=== PATIENT | male | born 1960 | race African-American/Black ===

== ENCOUNTER 2016-11-06 10:19 | Outpatient (CLI) | payer MEDICARE ==
[2016-11-06 11:25] LABS: Prothrombin Time 24.6 SEC (12.0-14.7)
== END 2016-11-06 10:20 | disposition home or self-care (01) ==
LOC: HPCALD 10:19
PROVIDERS: ATTEND Family Medicine
DX: I48.91 Unspecified atrial fibrillation (principal)
CPT/HCPCS: 36415; 85610

== ENCOUNTER 2016-12-03 13:30 | Emergency (ER) | payer MEDICARE ==
[2016-12-03] MEDS ORDERED: Indomethacin 25 mg Capsule ONE (13:45)
[2016-12-03] MEDS ORDERED: predniSONE 20 MG TAB ONE (13:45)
--- NOTE | 2016-12-03 14:06 | PICIS ---
[facility] EMERGENCY RECORD TRIAGE (SunDec 03, 2016 13:34 KMOR) TRIAGE NOTES: left wrist pain x1 day, possible gout flair. (SunDec 03, 2016 13:34 KMOR) PATIENT: NAME: Donell Zhang, AGE: 56, GENDER: male, : [facility] 1960, TIME OF GREET: SunDec 03, 2016 13:31, PREFERRED LANGUAGE: Indonesian, ETHNICITY: Not or , ECODE BILLING MAP: [facility], SSN: [id number], Zip Code: [address], KG WEIGHT: 192.78, PHONE: , , , PERSON ID: [id number], PAYMENT: [employer], PCP: DO CANSECO KRISTEL. (SunDec 03, 2016 13:34 KMOR) COMPLAINT: Left Wrist Pain. (SunDec 03, 2016 13:34 KMOR) ADMISSION: URGENCY: 4 Non Urgent, ADMISSION SOURCE: Home, TRANSPORT: CAR, BED: ER -02. (SunDec 03, 2016 13:34 KMOR) ASSESSMENT: Assessment: A&OX4. RR EVEN AND UNLABORED., Symptoms began yesterday. (13:36 KMOR) IMMUNIZATIONS: Flu vaccine not up to date, Tetanus immunization up to date, Pneumococcal vaccine not up to date. (13:36 KMOR) SIRS SCORING: Heart Rate 55-109 (0), Temp range 96.8-101.1 (0), respiratory rate 12-24 (0), Mental Status altered: no (0), Infection or Suspected Infection: No. (13:36 KMOR) TRIAGE SCREENING: Patient denies suicidal ideation, Patient denies presence of domestic violence. (13:36 KMOR) PROVIDERS: TRIAGE NURSE: Amy Hernandez RN. (SunDec 03, 2016 13:34 KMOR) VITAL SIGNS: Resp 18, Pain 8, Time 12/03/2016 13:33. (13:33 KMOR) BP 150/94, Pulse 78, Temp 98.3, (Oral), O2 Sat 97, on Room Air, Time 12/03/2016 13:35. (13:35 KMOR) PREVIOUS VISIT ALLERGIES: Penicillins. (Sun Dec 03, 2016 13:34 KMOR) Penicillins. (13:36 KMOR) KNOWN ALLERGIES Penicillins: Reaction: Rash, Severity: Moderate, Source: Patient CURRENT MEDICATIONS (13:34 KMOR) warfarin: TABLET : Strength - 7.5 mg : ORAL Patient Dose: 2 tab(s) Oral once a day.only 1 tab on mondays. allopurinol: TABLET : Strength - 300 mg : ORAL Patient Dose: 1 tab(s) Oral once a day (in the morning). digoxin: TABLET : Strength - 250 mcg : ORAL Patient Dose: 0.25 mg Oral once a day. lisinopril: TABLET : Strength - 40 mg : ORAL Patient Dose: 1 tab(s) Oral once a day. warfarin: &a-1R&a+25V*p+0X*q3409P*c202B*c15G*c2P*p-0X&a-25V&a+1R Name: Donell Zhang : 1960 M56 MedRec: [id number] AcctNum: [id number] Prepared: Tonia Dec 03, 2016 14:04 by Interface Page 1 of 6 pMD [facility] EMERGENCY RECORD TABLET : Strength - 5 mg : ORAL Patient Dose: 2.5 tab(s) Oral once a day.at 5 PM. metFORMIN: TABLET : Strength - 1,000 mg : ORAL Patient Dose: 1 tab(s) Oral 2 times a day (before meals). glipiZIDE: TABLET : Strength - 5 mg : ORAL Patient Dose: 1 tab(s) Oral once a day (in the morning). omeprazole: CAPSULE,DELAYED RELEASE (ENTERIC COATED) : Strength - 20 mg : ORAL Patient Dose: 1 cap(s) Oral once a day. VITAL SIGNS VITAL SIGNS: Resp: 18, Pain: 8, Time: 12/03/2016 13:33. (13:33 KMOR) BP: 150/94, Pulse: 78, Temp: 98.3 (Oral), O2 sat: 97 on Room Air, Time: 12/03/2016 13:35. (13:35 KMOR) NURSING ASSESSMENT: EXTREMITY UPPER (13:37 KMOR) CONSTITUTIONAL: Patient arrives ambulatory, Gait steady, History obtained from patient, Patient appears comfortable, Patient cooperative, Patient alert, Oriented to person, place and time, Skin warm, Skin dry, Skin normal in color, Mucous membranes pink, Mucous membranes moist, Patient is well-groomed, Patient complains of left wrist pain, left wrist pain started 1 day ago, no injury. Reports history of gout and this feels the same. PAIN: aching pain, to the left wrist, on a scale 0-10 patient rates pain as 8. LEFT UPPER EXTREMITY: Left upper extremity assessment findings include capillary refill less than 2 seconds, Skin color normal to hand, Skin temperature to hand warm, Distal sensation intact, Muscle tone normal, muscle strength 5, no edema present, radial pulse is +3, Inspection findings include no contusion, Inspection findings include no deformity, Inspection findings include no redness, Inspection findings include swelling, to medial wrist. RIGHT UPPER EXTREMITY: Right upper extremity assessment findings include capillary refill less than 2 seconds, Skin color normal to hand, Skin temperature to hand warm, Distal sensation intact, Muscle tone normal, muscle strength 5, no edema present, radial pulse is +3. NOTES: Patient tolerated procedure well. NURSING PROCEDURE: DISCHARGE NOTE (13:54 KMOR) DISCHARGE: Patient discharged to home, ambulating without assistance, driving self, unaccompanied, Summary of Care printed/ provided, Transition record given to patient, Discharge instructions given to patient, Simple or moderate discharge teaching performed, by CHELLE Reyes, Discharge instructions and follow up reviewed with patient. Pt ambulatory to discharge desk., Prescriptions given and instructions on side effects given, Name of prescription(s) given: indomethcin, prednisone, Above person(s) verbalized &a-1R&a+25V*p+0X*j6390A*c202B*c15G*c2P*p-0X&a-25V&a+1R Name: Donell Zhang : 1960 M56 MedRec: [id number] AcctNum: [id number] Prepared: Tonia Dec 03, 2016 14:04 by Interface Page 2 of 6 pMD [facility] EMERGENCY RECORD understanding of discharge instructions and follow-up care. BELONGINGS: Belongings remain with patient, Valuables remain with patient. MEDICATION ADMINISTRATION SUMMARY Drug Name: predniSONE oral, Dose Ordered: 60 mg, Route: Oral, Status: Given, Time: 13:47 12/03/2016, Drug Name: indomethacin oral, Dose Ordered: 25 mg, Route: Oral, Status: Given, Time: 13:47 12/03/2016, Detailed record available in Medication Service section. MEDICATION SERVICE (13:47 [facility]) indomethacin oral: Order: indomethacin oral (indomethacin) - Dose: 25 mg : Oral POTENTIAL SEVERE INTERACTION: warfarin - Benefits outweigh risks, Reviewed with patient Ordered by: Waldemar Barajas MD Entered by: Waldemar Barajas MD [place] Dec 03, 2016 13:44 , Acknowledged by: Amy Hernandez RN [place] Dec 03, 2016 13:45 Documented as given by: Amy Hernandez RN [place] Dec 03, 2016 13:47 Patient, Medication, Dose, Route and Time verified prior to administration. Amount given: 25mg, Site: Medication administered P.O., Correct patient, time, route, dose and medication confirmed prior to administration, Patient advised of actions and side-effects prior to administration, Allergies confirmed and medications reviewed prior to administration, Patient in position of comfort, Side rails up, Cart in lowest position. predniSONE oral: Order: predniSONE oral (prednisone) - Dose: 60 mg : Oral Ordered by: Waldemar Barajas MD Entered by: Waldemar Barajas MD [place] Dec 03, 2016 13:41 , Acknowledged by: Amy Hernandez RN [place] Dec 03, 2016 13:41 Documented as given by: Amy Hernandez RN [place]erry Dec 03, 2016 13:47 Patient, Medication, Dose, Route and Time verified prior to administration. Amount given: 60mg, Site: Medication administered P.O., Correct patient, time, route, dose and medication confirmed prior to administration, Patient advised of actions and side-effects prior to administration, Allergies confirmed and medications reviewed prior to administration, Patient in position of comfort, Side rails up, Cart in lowest position. HPI HAND (13:52 [facility]) CHIEF COMPLAINT: Patient presents for evaluation of pain, Patient presents for evaluation of swelling, Patient presents for evaluation of left wrist. HISTORIAN: History provided by patient, 56M presents to the ED reporting left wrist pain. States that the pain started &a-1R&a+25V*p+0X*w5717O*c202B*c15G*c2P*p-0X&a-25V&a+1R Name: Vicente Donell Celina : 1960 M56 MedRec: [id number] AcctNum: [id number] Prepared: Tonia Dec 03, 2016 14:04 by Interface Page 3 of 6 pMD [facility] EMERGENCY RECORD yesterday and has been constant since then. Describes the pain as exactly the same as his gouty ankle/foot pain that he has had in the past. Denies trauma, fall, or repetitive motion. Denies other injury or complaint. Denies distal numbness or tingling. MECHANISM OF INJURY: Unknown mechanism. LOCATION: Symptoms are generalized, Right hand dominant, left wrist. QUALITY: Pain is dull in nature, described as aching. TIME COURSE: Gradual onset of symptoms, There has been no change in the patient's symptoms over time, are constant. ASSOCIATED WITH: No associated symptoms. EXACERBATED BY: Patient's condition exacerbated by nothing. RELIEVED BY: Patient's condition relieved by nothing because patient has not tried anything for relief. ROS (13:54 [facility]) CONSTITUTIONAL: Negative constitutional review of systems, Historian denies chills, denies fever. ENT: Negative ears, nose, throat review of systems, Historian denies rhinorrhea, denies sore throat. CARDIOVASCULAR: Negative cardiovascular review of systems, Historian denies chest pain, denies palpitations. RESPIRATORY: Negative respiratory review of systems, Historian denies cough, denies shortness of breath. GI: Negative gastrointestinal review of systems, Historian denies abdominal pain, denies constipation, denies diarrhea, denies nausea, denies vomiting. MUSCULOSKELETAL: Historian reports joint swelling, left wrist pain, no trauma, no injury. SKIN: Negative skin review of systems, Historian denies rash, denies skin changes. NEUROLOGIC: Negative neurologic review of systems, Historian denies headache. PAST MEDICAL HISTORY (13:36 [facility]) MEDICAL HISTORY: Flu vaccine not up to date, Tetanus immunization up to date, Pneumococcal vaccine not up to date, , Past medical history includes cardiac history, arrhythmia, atrial fibrillation, Past medical history includes musculoskeletal disorder, gout, Past medical history includes skin history, shingles, Past medical history includes history of hypertension; Past medical history includes cardiac history, congestive heart failure Cellulitis. MALE SURGICAL HISTORY: Patient has no surgical history. PSYCHIATRIC HISTORY: No previous psychiatric history. SOCIAL HISTORY: Patient denies alcohol use, Patient denies drug use, Patient has no smoking history. FAMILY HISTORY: Family istory is not significant. &a-1R&a+25V*p+0X*j3661Z*c202B*c15G*c2P*p-0X&a-25V&a+1R Name: Donell Zhang : 1960 M56 MedRec: [id number] AcctNum: [id number] Prepared: Tonia Dec 03, 2016 14:04 by Interface Page 4 of 6 pMD [facility] EMERGENCY RECORD PHYSICAL EXAM (13:54 [facility]) CONSTITUTIONAL: Vital signs reviewed, Patient afebrile, Pulse normal, Blood pressure normal, Respiratory rate normal, Patient appears non toxic, Patient appears pain free, Patient alert and oriented to person, place and time. NECK: Neck exam normal, Neck exam included findings of normal range of motion, Trachea midline, no meningeal signs, no cervical adenopathy, no tenderness. RESPIRATORY CHEST: Respiratory and chest exam normal, Respiratory exam included findings of no respiratory distress, Breath sounds clear. CARDIOVASCULAR: Cardiovascular assessment normal, Cardiovascular exam included findings of heart rate regular rate and rhythm, Heart sounds normal. ABDOMEN MALE: Abdominal exam included findings of abdomen nontender, Bowel sounds normal, no distension, no mass, no pulsatile masses, no peritoneal signs, no rigidity, no guarding, no rebound, Rovsing's sign absent. BACK: Back exam normal, Back exam included findings of normal inspection, range of motion normal, no tenderness. UPPER EXTREMITY: mild left wrist swelling and tenderness to palpation. no obvious erythema, but dark skin. No evidence of injury, no excess bony point tenderness. NEURO: Neuro exam normal, Neuro exam findings include patient oriented to person, place and time, Speech normal, Gait normal. SKIN: Skin exam normal, Skin exam included findings of skin warm, dry, and normal in color, no rash. EVENTS TRANSFER: Triage to Emergency Emergency Room -02. (Tonia Dec 03, 2016 13:34 KMOR) Removed from Emergency Emergency Room -02. (13:55 [facility]) DOCTOR NOTES (13:55 [facility]) TEXT: Patient presented with findings consistent with acute gouty arthritis. Has been well managed on allopurinol recently but symptoms are consistent with acute flare. Will start medications for management and have the patient follow up with his primary care provider next week. PATIENT STATUS: Patient has improved since arrival to emergency department. PATIENT PLAN: The patient will be discharged, The patient will follow up with primary care physician. PROBLEM LIST No recorded problems DIAGNOSIS (13:46 [facility]) FINAL: PRIMARY: GOUT UNSPECIFIED. &a-1R&a+25V*p+0X*j6584U*c202B*c15G*c2P*p-0X&a-25V&a+1R Name: Donell Zhang : 1960 M56 MedRec: [id number] AcctNum: [id number] Prepared: Tonia Dec 03, 2016 14:04 by Interface Page 5 of 6 pMD [facility] EMERGENCY RECORD DISPOSITION PATIENT: Disposition Type: Discharge, Disposition: *Discharge Home. (13:46 [facility]) Patient left the department. (13:55 [facility]) INSTRUCTION (13:48 [facility]) DISCHARGE: GOUTY ARTHRITIS. FOLLOWUP: DO CANSECO KRISTEL, [facility], [address] [place] [id number], [phone]. SPECIAL: Take prednisone daily. If you still have pain, add an NSAID, which can be one of 1. Indomethacin 25-50mg three times a day 2. Naproxen 500mg three times a day 3. Ibuprofen 600mg four times a day. Don't take the NSAIDS for more than 3 or 4 days. Follow up with Dr. Canseco early next week. PRESCRIPTION predniSONE oral: TABLET : 20 mg : ORAL : Quantity: 3 Unit: tab(s) Route: ORAL Schedule: once a day (after a meal) Dispense: 12 May substitute. Refills: No Refills . (13:45 [facility]) NOTES: start 2/6 No refills. (13:45 [facility]) indomethacin oral: CAPSULE : 25 mg : ORAL : Quantity: 25 Unit: mg Route: ORAL Schedule: every 8 hours PRN Dispense: 12 May substitute. Refills: No Refills POTENTIAL SEVERE INTERACTION: warfarin Override Rationale: Benefits outweigh risks, Reviewed with patient. (13:46 [facility]) NOTES: No refills. (13:46 [facility]) IMAGING (13:55 [facility]) *DISCHARGE INSTRUCTIONS RECEIPT: Image captured from scanner. *SUPPLY CHARGE SHEET: Image captured from scanner. ADMIN DIGITAL SIGNATURE: CHELLE Hernandez, Amy. (13:56 KMOR) MD Barajas Jason. (13:56 [facility]) Guo: YESI=MD Barajas Jason KMOR=CHELLE Hernandez Krista &a-1R&a+25V*p+0X*y5536M*c202B*c15G*c2P*p-0X&a-25V&a+1R Name: Donell Zhang : 1960 M56 MedRec: [id number] AcctNum: [id number] Prepared: Tonia Dec 03, 2016 14:04 by Interface Page 6 of 6 pMD MTDD
== END 2016-12-03 13:53 | disposition home or self-care (01) ==
LOC: BURERS 13:30
DX: M10.9 Gout, unspecified (principal); I48.91 Unspecified atrial fibrillation; I10 Essential (primary) hypertension; I50.9 Heart failure, unspecified; Z79.84 Long term (current) use of oral hypoglycemic drugs; Z79.899 Other long term (current) drug therapy
CPT/HCPCS: 99283; J7506

== ENCOUNTER 2016-12-07 10:31 | Outpatient (CLI) | payer MEDICARE | END 2016-12-07 10:32 | disposition home or self-care (01) | LOC: HPCALD 10:31 | PROVIDERS: ATTEND Family Medicine | DX: I48.91 Unspecified atrial fibrillation (principal) | CPT/HCPCS: 36415; 85610 ==

== ENCOUNTER 2017-01-09 11:03 | Outpatient (CLI) | payer MEDICARE ==
[2017-01-09 13:49] LABS: Prothrombin Time 19.4 SEC (12.0-14.7)
== END 2017-01-09 11:04 | disposition home or self-care (01) ==
LOC: HPCALD 11:03
PROVIDERS: ATTEND Family Medicine
DX: I48.91 Unspecified atrial fibrillation (principal)
CPT/HCPCS: 36415; 85610

== ENCOUNTER 2017-01-19 15:05 | Outpatient (CLI) | payer MEDICARE ==
[2017-01-19 16:18] LABS: INR-International Normal Ratio 1.7; Prothrombin Time 20.4 SEC (12.0-14.7)
== END 2017-01-19 15:06 | disposition home or self-care (01) ==
LOC: HPCALD 15:05
PROVIDERS: ATTEND Family Medicine
DX: I48.91 Unspecified atrial fibrillation (principal)
CPT/HCPCS: 36415; 85610

== ENCOUNTER 2017-01-29 10:07 | Outpatient (CLI) | payer MEDICARE ==
[2017-01-29 11:23] LABS: INR-International Normal Ratio 2.2; Prothrombin Time 24.6 SEC (12.0-14.7)
== END 2017-01-29 10:08 | disposition home or self-care (01) ==
LOC: HPCALD 10:07
PROVIDERS: ATTEND Family Medicine
DX: I48.2 Chronic atrial fibrillation (principal)
CPT/HCPCS: 36415; 85610

== ENCOUNTER 2017-03-01 10:57 | Outpatient (CLI) | payer MEDICARE ==
[2017-03-01 11:51] LABS: INR-International Normal Ratio 1.7; Prothrombin Time 20.3 SEC (12.0-14.7)
== END 2017-03-01 10:58 | disposition home or self-care (01) ==
LOC: HPCALD 10:57
PROVIDERS: ATTEND Family Medicine
DX: I48.91 Unspecified atrial fibrillation (principal)
CPT/HCPCS: 36415; 85610

== ENCOUNTER 2017-03-15 13:35 | Outpatient (CLI) | payer MEDICARE ==
[2017-03-15 13:58] LABS: INR-International Normal Ratio 2.3
== END 2017-03-15 13:36 | disposition home or self-care (01) ==
LOC: HPCALD 13:35
PROVIDERS: ATTEND Family Medicine
DX: I48.91 Unspecified atrial fibrillation (principal)
CPT/HCPCS: 36415; 85610

== ENCOUNTER 2017-04-12 10:34 | Outpatient (CLI) | payer MEDICARE ==
[2017-04-12 11:00] LABS: INR-International Normal Ratio 2.5
== END 2017-04-12 10:35 | disposition home or self-care (01) ==
LOC: HPCALD 10:34
PROVIDERS: ATTEND Family Medicine
DX: I48.91 Unspecified atrial fibrillation (principal)
CPT/HCPCS: 36415; 85610

== ENCOUNTER 2017-05-17 13:06 | Outpatient (CLI) | payer MEDICARE ==
[2017-05-17 14:07] LABS: INR-International Normal Ratio 2.3; Prothrombin Time 26.1 SEC (12.0-14.7)
== END 2017-05-17 13:07 ==
LOC: HPCALD 13:06
PROVIDERS: ATTEND Family Medicine
DX: I48.91 Unspecified atrial fibrillation (principal)
CPT/HCPCS: 36415; 85610

== ENCOUNTER 2017-06-19 10:13 | Outpatient (CLI) | payer MEDICARE ==
[2017-06-19 10:54] LABS: Prothrombin Time 47.6 SEC (12.0-14.7)
[2017-06-19 12:10] LABS: INR-International Normal Ratio 4.8
== END 2017-06-19 10:14 | disposition home or self-care (01) ==
LOC: HPCALD 10:13
PROVIDERS: ATTEND Family Medicine
DX: Z51.81 Encounter for therapeutic drug level monitoring (principal); I48.91 Unspecified atrial fibrillation; Z79.01 Long term (current) use of anticoagulants
CPT/HCPCS: 36415; 85610

== ENCOUNTER 2017-07-03 10:03 | Outpatient (CLI) | payer MEDICARE ==
[2017-07-03 13:05] LABS: INR-International Normal Ratio 3.4; Prothrombin Time 36.3 SEC (12.0-14.7)
== END 2017-07-03 10:04 | disposition home or self-care (01) ==
LOC: HPCALD 10:03
PROVIDERS: ATTEND Family Medicine
DX: Z51.81 Encounter for therapeutic drug level monitoring (principal); I48.91 Unspecified atrial fibrillation; Z79.01 Long term (current) use of anticoagulants
CPT/HCPCS: 36415; 85610

== ENCOUNTER 2017-07-10 09:36 | Outpatient (CLI) | payer MEDICARE ==
[2017-07-10 10:15] LABS: INR-International Normal Ratio 2.1; Prothrombin Time 24.7 SEC (12.0-14.7)
[2017-07-10 10:26] LABS: #Basophils 0.1 thou/uL (0.0-0.2); #Eosinphils 0.2 thou/uL (0.0-0.7); #Monocytes 0.5 thou/uL (0.11-0.59); #Neutrophils 3.6 thou/uL (1.40-6.50); %Eosinophils 3.2 % (0.0-10.0); %Lymphocytes 32.1 % (21.0-51.0); %Monocytes 7.4 % (0.0-10.0); %Neutrophils 56.4 % (42.0-75.0); Hemoglobin 13.6 g/dL (14.0-18.0); Mean Corpuscular HGB CONC 33.6 g/dL (32.0-36.0); Mean Corpuscular Volume 95.1 fl (80.0-94.0); Mean Platelet Volume 6.3 fL (7.4-10.4); Platelet Count 203 thou/uL (130-400); RBC Distribution Width 14.4 % (11.5-14.5); Red Blood Cell (RBC) Count 4.27 mill/uL (4.70-6.10); White Blood Cell (WBC) Count 6.3 thou/uL (4.8-10.8)
[2017-07-10 10:52] LABS: ALT (SGPT) 10 U/L (8-55); AST (SGOT) 12 U/L (5-34); Albumin 3.7 g/dL (3.5-5.0); Alkaline Phosphatase 86 U/L (40-150); Anion Gap 14 mmol/L (10-20); BUN (Urea Nitrogen) 10 mg/dL (8.4-25.7); Calc. Creatinine Clearance 0 mL/min (70-130); Calcium 9.5 mg/dL (7.8-10.44); Carbon Dioxide 24 mmol/L (22-29); Chloride 108 mmol/L (98-107); Estimated GFR-MDRD 85; Globulin 4.1 g/dL (2.4-3.5); Glucose 104 mg/dL (70-105); Potassium 3.9 mmol/L (3.5-5.1); Protein, Total 7.8 g/dL (6.0-8.3); Sodium 142 mmol/L (136-145)
[2017-07-10 18:46] LABS: Creatinine, Urine 238.93 mg/dL (63-166); Microalbumin Urine 3.7 mg/dL (0.5-50.0); Microalbumin/Creat Ratio 15.5 mg/g (Less than 30)
== END 2017-07-10 09:37 | disposition home or self-care (01) ==
LOC: HPCALD 09:36
PROVIDERS: ATTEND Family Medicine
DX: I10 Essential (primary) hypertension (principal); I48.91 Unspecified atrial fibrillation
CPT/HCPCS: 36415; 80053; 82043; 84443; 85025; 85610

== ENCOUNTER 2017-08-09 09:17 | Emergency (ER) | payer MEDICARE | END 2017-08-09 09:39 | disposition home or self-care (01) | LOC: BURERS 09:17 | DX: L03.115 Cellulitis of right lower limb (principal); E11.9 Type 2 diabetes mellitus without complications; I48.91 Unspecified atrial fibrillation; I11.0 Hypertensive heart disease with heart failure; I50.9 Heart failure, unspecified; M10.9 Gout, unspecified | CPT/HCPCS: 99283 ==

== ENCOUNTER 2020-11-09 14:01 | Emergency (ER) | payer MEDICARE | END 2020-11-09 14:22 | disposition home or self-care (01) | LOC: BURERS 14:01 | DX: N47.6 Balanoposthitis (principal); E11.9 Type 2 diabetes mellitus without complications; I48.91 Unspecified atrial fibrillation; M10.9 Gout, unspecified; I50.9 Heart failure, unspecified; I11.0 Hypertensive heart disease with heart failure | CPT/HCPCS: 99282 ==

== ENCOUNTER 2023-03-17 23:00 | Emergency (ER) | payer MEDICARE, OTHER ==
[2023-03-17] MEDS ORDERED: Ketorolac Tromethamine 60 MG/2 ML VIAL ONE (23:20)
== END 2023-03-17 23:29 | disposition home or self-care (01) ==
LOC: BURERS 23:00
DX: R60.0 Localized edema (principal); E11.9 Type 2 diabetes mellitus without complications; I11.0 Hypertensive heart disease with heart failure; I50.9 Heart failure, unspecified; Z79.899 Other long term (current) drug therapy; Z79.84 Long term (current) use of oral hypoglycemic drugs
CPT/HCPCS: 96372; 99283; J1885

== ENCOUNTER 2024-08-05 19:44 | Emergency (ER) | payer OTHER ==
[2024-08-05] MEDS ORDERED: Boostrix 0.5 ML (Tdap) VIAL (>/=7 yrs of age) ONE (20:56)
[2024-08-05] MEDS ORDERED: Lidocaine 1% PF 5 ML VIAL ONE (20:56)
[2024-08-05] MEDS ORDERED: HYDROcodone/Acetaminophen 5/325 mg Tablet ONE (23:03)
== END 2024-08-05 23:22 | disposition home or self-care (01) ==
LOC: BURERS 19:44
DX: S91.211A Laceration without foreign body of right great toe with damage to nail, initial encounter (principal); I11.0 Hypertensive heart disease with heart failure; I50.9 Heart failure, unspecified; E11.9 Type 2 diabetes mellitus without complications; I48.91 Unspecified atrial fibrillation; Z23 Encounter for immunization; W22.09XA Striking against other stationary object, initial encounter; Y93.89 Activity, other specified
CPT/HCPCS: 12002; 90471; 90715

== ENCOUNTER 2025-08-13 14:53 | Emergency (ER) | payer MEDICARE, OTHER ==
[2025-08-13 19:10] LABS: ALT (SGPT) 13 U/L (Less than 45); AST (SGOT) 29 U/L (11-34); Albumin 3.5 g/dL (3.1-4.5); Alkaline Phosphatase 73 U/L (40-110); Anion Gap 15 mmol/L (10-20); BUN (Urea Nitrogen) 19 mg/dL (8.4-25.7); Bilirubin, Total 0.6 mg/dL (0.3-1.2); Calc. Creatinine Clearance 0 mL/min (70-130); Calcium 9.0 mg/dL (7.8-10.44); Carbon Dioxide 19 mmol/L (23-31); Chloride 108 mmol/L (98-107); Globulin 5.2 g/dL (2.4-3.5); Glucose 85 mg/dL (80-115); Potassium 4.0 mmol/L (3.5-5.1); Sodium 138 mmol/L (136-145)
[2025-08-13 19:13] LABS: Hematocrit 35.8 % (42.0-52.0); Hemoglobin 12.9 g/dL (14.0-18.0); Mean Corpuscular Hemoglobin 31.2 pg (27.0-31.0); Mean Corpuscular Volume 86.2 fl (78.0-98.0); Platelet Count 208 10x3/uL (130-400); Red Blood Cell (RBC) Count 4.15 mill/uL (4.70-6.10); White Blood Cell (WBC) Count 8.6 10x3/uL (4.8-10.8)
[2025-08-13 19:53] LABS: MDiff Complete? YES
[2025-08-14 11:41] LABS: Troponin I Less than 0.010 ng/mL (< 0.028)
== END 2025-08-13 22:42 | disposition short-term general hospital (02) ==
LOC: BURERS 14:53
DX: M25.572 Pain in left ankle and joints of left foot (principal); M79.89 Other specified soft tissue disorders; I11.0 Hypertensive heart disease with heart failure; I50.9 Heart failure, unspecified; E11.9 Type 2 diabetes mellitus without complications; I48.91 Unspecified atrial fibrillation; Z79.899 Other long term (current) drug therapy; Z79.01 Long term (current) use of anticoagulants; Z79.82 Long term (current) use of aspirin
CPT/HCPCS: 71045; 80053; 83880; 84484; 85025; 93005; J2270 ×2